=== PATIENT | female | born 1950 | race Two or more races ===

== ENCOUNTER 2020-02-28 08:30 | Inpatient (IN) | payer OTHER ==
[~2020-02-28] VITALS: Ht 152.4 cm; Wt 79.4 kg
[2020-02-28] MEDS ORDERED: ASPIR 8181 MG PO (11:08)
[2020-03-06] MEDS ORDERED: ATORVASTATIN CA10 MG (08:06)
[2020-03-06] MEDS ORDERED: ENALAPRIL MALE2.5 MG (08:06)
[2020-03-08] MEDS ORDERED: ELIQUIS5 M1 PO (14:38)
[2020-03-08] MEDS ORDERED: PERCOCET 5-3251 EACH PO (14:38)
[2020-03-08] MEDS ORDERED: DUI500 PO (14:38)
== END 2020-03-08 17:53 | DRG 470 ==
LOC: SURH 03-06 05:55 → O/R 03-06 05:55 → SURH 03-06 07:00
PROVIDERS: ADMIT Orthopaedic Surgery; ATTEND Orthopaedic Surgery
PROC: 0SRC0J9 Replacement of Right Knee Joint with Synthetic Substitute, Cemented, Open Approach (ICD-10-PCS; principal; 2020-03-06 07:00)
DX: M17.11 Unilateral primary osteoarthritis, right knee (principal); D62 Acute posthemorrhagic anemia; E66.01 Morbid (severe) obesity due to excess calories; Z20.828 Contact with and (suspected) exposure to other viral communicable diseases